=== PATIENT | female | born 1995 | race American Indian/Alaskan Native ===

== ENCOUNTER 2020-11-11 06:22 | Emergency (ER) | payer SELFPAY ==
--- OUTSIDE RECORDS SUMMARY | 2020-11-11 06:24 | XMS REPORT | Continuity of Care Document ---
:1995 Author Organization [facility] t Address [address] [place] [address] Care Team Providers Name Role Phone Unavailable Unavailable Unavailable Payers Payer Name Policy Type Policy Number Effective Date Expiration Date S ource Problems This patient has no known problems. Allergies, Adverse Reactions, Alerts Allergy Allergy Status Severity Reaction(s) Onset Inactive Treating Comm ents Source Name Type Date Date Clinician No Known DA Active U 2019-0 [facility]- [facility] s 00:00: [address] No Known DA Active U 2015-0 [facility] 3-18 [facility] s 00:00: [address] Medications This patient has no known medications. Procedures This patient has no known procedures. Results Test Description Test Time Test Comments Results Result Comments Source BASIC METABOLIC PANEL 2018-09-28 17:04:00 Test Item Value Reference Range Interpretation Comme nts SODIUM (test code = NA) 137 MMOL/L 133-145 N POTASSIUM (test code = K) 3.6 MMOL/L 3.6-5.2 N CHLORIDE (test code = CL) 101 MMOL/L 100-108 N CARBON DIOXIDE (test code = 25 MMOL/L 22-32 N CO2) GLUCOSE (test code = GLU) 70 MG/DL 65-99 N Re sults of this assay method may be falsely depressed orelevated if p atient is taking sulfasalazine. BLOOD UREA NITROGEN (test code 9 MG/DL 6-20 N = BUN) GLOMERULAR FILTRATION RATE 171 71-165 H R eporting units: (test code = GFR) mL/min/1.7 3m\S\2 (Modified MDRD Formula) CREATININE (test code = CREAT) 0.45 MG/DL 0.60-1.00 L CALCIUM (test code = CA) 9.1 MG/DL 8.7-10.5 N THYROID STIMULATING [id number] 17:04:00 Test Item Value Reference Range Interpretation Comments THYROID STIMULATING < 0.01 0.42-5.47 L Micro-In ternational HORMONE (test code = TSH) Un its/L BASIC METABOLIC [id number] 16:52:00 Test Item Value Reference Range Interpretation Comments SODIUM (test code = 137 MMOL/L 133-145 N NA) POTASSIUM (test code = 3.6 MMOL/L 3.6-5.2 N K) CHLORIDE (test code = 101 MMOL/L 100-108 N CL) CARBON DIOXIDE (test 25 MMOL/L 22-32 N code = CO2) GLUCOSE (test code = 70 MG/DL 65-99 N Results of this assay GLU) method may be f alsely depressed orele vated if patient is t aking sulfasalazine. BLOOD UREA NITROGEN 9 MG/DL 6-20 N (test code = BUN) GLOMERULAR FILTRATION 171 71-165 H Report ing units: RATE (test code = GFR) mL/mi n/1.73m\S\2 (Modified MDRD Formula) CREATININE (test code 0.45 MG/DL 0.60-1.00 L = CREAT) CALCIUM (test code = 9.1 MG/DL 8.7-10.5 N CA) THYROID STIMULATING [id number] 16:52:00 Test Item Value Reference Range Interpretation Comments THYROID STIMULATING HORMONE (test code 0.42-5.47 = TSH) CBC W/AUTO [id number] 16:44:00 Test Item Value Reference Range Interpretation Comments WHITE BLOOD CELL (test 12.70 x10 3/uL 4.80-10.80 H Res ults called to code = WBC) and read back Sukhdev MARTINEZ RN;[id number], 09/28/18, D.LAB.MCM. RED BLOOD CELL (test 4.82 x10 6/uL 4.2-5.4 N code = RBC) HEMOGLOBIN (test code = 12.8 G/DL 12.0-16.0 N HGB) HEMATOCRIT (test code = 37.2 % 37-47 N HCT) MEAN CELL VOLUME (test 77.2 FL 81-99 L code = MCV) MEAN CELL HGB (test 26.6 PG 27-31 L code = MCH) MEAN CELL HGB 34.4 G/DL 33-37 N CONCENTRATION (test code = MCHC) RED CELL DISTRIBUTION 13.8 % 11.5-14.5 N WIDTH (test code = RDW) PLATELET COUNT (test 229 x10 3/uL 150-450 N code = PLT) MEAN PLATELET VOLUME 10.0 FL 7.4-10.4 N (test code = MPV) NEUTROPHIL % (test code 89.1 % 42-86 H = NT%) LYMPHOCYTE % (test code 5.6 % 24-44 L = LY%) MONOCYTE % (test code = 5.3 % 0.0-4.0 H MO%) EOSINOPHIL % (test code 0.0 % 0.0-2.7 N = EO%) BASOPHIL % (test code = 0.0 % 0.0-0.5 N BA%) NEUTROPHIL # (test code 11.32 x10 3/uL 1.8-7.7 H = NT#) LYMPHOCYTE # (test code 0.71 x10 3/uL 1.0-4.8 L = LY#) MONOCYTE # (test code = 0.67 x10 3/uL 0.0-0.8 N MO#) EOSINOPHIL # (test code 0.00 x10 3/uL 0.0-0.5 N = EO#) BASOPHIL # (test code = 0.00 x10 3/uL 0.0-0.2 N BA#)
[2020-11-11 07:08] LABS: Basophils % 0.3 % (0-1.3); Hematocrit 38.9 % (36.0-45.0); Lymphocytes % 36.2 % (15.3-44.8); MPV 8.3 fL (7.6-11.3); RBC Red Blood Cell Count 4.43 M/uL (3.86-4.86)
[2020-11-11 07:35] LABS: ALT/SGPT 16 U/L (12-78); AST/SGOT 12 U/L (15-37); Albumin 3.9 g/dL (3.4-5.0); BUN Blood Urea Nitrogen 10 mg/dL (7-18); Bicarbonate 25 mmol/L (21-32); Bilirubin Direct < 0.1 mg/dL (0-0.2); Bilirubin Total 0.3 mg/dL (0.2-1.0); Glucose Level 88 mg/dL (74-106); Protein, Total 7.6 g/dL (6.4-8.2); Sodium Level 140 mmol/L (136-145)
[2020-11-11 07:38] LABS: Alkaline Phosphatase ND U/L (45-117)
--- NOTE | 2020-11-11 07:45 | RAD REPORT ---
EXAM DESCRIPTION: Yolanda Single View11/11/2020 7:04 am CLINICAL HISTORY: Cough COMPARISON: none FINDINGS: The lungs appear clear of acute infiltrate. The heart is normal size IMPRESSION: No acute abnormalities displayed
--- NOTE | 2020-11-11 09:13 | ER ---
Nurse's Notes [facility] Name: Sharifa Broussard Age: 25 yrs Sex: Female : 1995 Arrival Date: 11/11/2020 Time: 06:22 Bed 13 Private MD: Diagnosis: Acute upper respiratory infection, unspecified;SARS-associated coronavirus as the cause of diseases classified elsewhere;Hypothyroidism, unspecified Presentation: 11/11 06:33 Chief complaint: Patient states: family has COVID, Pt states she has had a headache x 4 dm5 days with runny nose and eyes and diarrhea. Coronavirus screen: diarrhea, headache, runny nose, Client presents with at least one sign or symptom that may indicate coronavirus-19. Standard/surgical mask placed on the client. Ebola Screen: Patient negative for fever greater than or equal to 101.5 degrees Fahrenheit, and additional compatible Ebola Virus Disease symptoms Patient denies exposure to infectious person. Patient denies travel to an Ebola-affected area in the 21 days before illness onset. No symptoms or risks identified at this time. Initial Sepsis Screen: Does the patient meet any 2 criteria? No. Patient's initial sepsis screen is negative. Does the patient have a suspected source of infection? No. Patient's initial sepsis screen is negative. Risk Assessment: Do you want to hurt yourself or someone else? Patient reports no desire to harm self or others. Onset of symptoms was November 11, 2020. 06:33 Method Of Arrival: Ambulatory dm5 06:33 Acuity: JESSIE 3 dm5 Triage Assessment: 06:36 General: Appears in no apparent distress. Behavior is calm, cooperative. Pain: Denies dm5 pain. GI: Reports diarrhea. Derm: Skin is pink, warm \T\ dry. 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 - Social history:: Smoking status: Patient denies any tobacco usage or history of. Screenin:44 Abuse screen: Denies threats or abuse. Denies injuries from another. Nutritional mg2 screening: No deficits noted. Tuberculosis screening: No symptoms or risk factors identified. Fall Risk None identified. Assessment: 06:43 General: Appears in no apparent distress. comfortable. Pain: Denies pain. Neuro: Level mg2 of Consciousness is awake, alert, obeys commands, Oriented to person, place, time, situation. Cardiovascular: Capillary refill < 3 seconds Patient's skin is warm and dry. Respiratory: Airway is patent Respiratory effort is even, unlabored, Respiratory pattern is regular, symmetrical. GI: Reports diarrhea. : No signs and/or symptoms were reported regarding the genitourinary system. EENT: No signs and/or symptoms were reported regarding the EENT system. Derm: Skin is intact, is healthy with good turgor, Skin is pink, warm \T\ dry. normal. Musculoskeletal: Circulation, motion, and sensation intact. Capillary refill < 3 seconds. 07:15 General: Appears in no apparent distress. comfortable, Behavior is calm, cooperative, jd3 appropriate for age. Pain: Denies pain. Neuro: Level of Consciousness is awake, alert, obeys commands, Oriented to person, place, time, situation. Cardiovascular: Denies chest pain, Capillary refill < 3 seconds Patient's skin is warm and dry. Respiratory: Reports cough that is non-productive, Airway is patent Respiratory effort is even, unlabored, Respiratory pattern is regular, symmetrical. GI: Abdomen is flat, non-distended, Reports diarrhea. : No signs and/or symptoms were reported regarding the genitourinary system. EENT: Reports nasal discharge. Derm: Skin is intact, Skin is dry, Skin is normal, Skin temperature is warm. Musculoskeletal: Circulation, motion, and sensation intact. Range of motion: intact in all extremities. 08:31 Reassessment: Patient appears in no apparent distress at this time. No changes from jd3 previously documented assessment. Patient and/or family updated on plan of care and expected duration. Pain level reassessed. Patient is alert, oriented x 3, equal unlabored respirations, skin warm/dry/pink. awaiting results. 09:26 Reassessment: Patient appears in no apparent distress at this time. Patient and/or jd3 family updated on plan of care and expected duration. Pain level reassessed. Patient is alert, oriented x 3, equal unlabored respirations, skin warm/dry/pink. reported understanding of discharge instructions. even and steady gait upon discharge. Vital Signs: 06:33 Weight 57.15 kg; Height 5 ft. 4 in. (162.56 cm) (R); dm5 06:49 BP 116 / 77; Pulse 78; Resp 18; Temp 98.6(TE); Pulse Ox 99% on R/A; mg2 09:27 BP 115 / 69; Pulse 75; Resp 16 S; Pulse Ox 99% on R/A; jd3 06:33 Body Mass Index 21.63 (57.15 kg, 162.56 cm) dm5 ED Course: 06:22 Patient arrived in ED. cl3 06:35 Triage completed. dm5 06:35 Kieran Lino MD is Attending Physician. mh7 06:36 Arm band placed on. dm5 06:38 Yandel Al, CHARBEL is Primary Nurse. mg2 06:49 Patient has correct armband on for positive identification. mg2 06:49 No provider procedures requiring assistance completed. mg2 06:56 Inserted saline lock: 20 gauge in right antecubital area, using aseptic technique. mg2 Blood collected. 07:04 Chest Single View XRAY In Process Unspecified. EDMS 07:20 Attending Physician role handed off by Kieran Lino MD kdr 07:20 Dio Baez MD is Attending Physician. kdr 07:43 Primary Nurse role handed off by Yandel Al RN 08:31 Yonathan Sadler RN is Primary Nurse. jd3 09:27 IV discontinued, intact, bleeding controlled, No redness/swelling at site. Pressure jd3 dressing applied. Administered Medications: No medications were administered Outcome: 09:10 Discharge ordered by . kdr 09:27 Discharged to home ambulatory, with family. jd3 09:27 Condition: stable 09:27 Discharge instructions given to patient, Instructed on discharge instructions, follow up and referral plans. Demonstrated understanding of instructions, follow-up care. 09:28 Patient left the ED. jd3 Signatures: Dispatcher [employer] EDMS Damaris Monroe, RN RN dm5 Dio Baez MD MD kdr Yonathan Sadler RN RN jd3 Elizabeth Cardozo eb Yandel Al RN RN [facility] Leticia Dalal 3 Kieran Lino MD MD 7
--- NOTE | 2020-11-11 09:13 | EDPHYS ---
Physician Documentation [facility] Name: Sharifa Broussard Age: 25 yrs Sex: Female : 1995 Arrival Date: 11/11/2020 Time: 06:22 Bed 13 Private MD: ED Physician Dio Baez HPI: 11/11 07:12 This 25 yrs old Other Female presents to ER via Ambulatory with complaints of Runny mh7 Nose, Diarrhea. 07:12 The patient or guardian reports cough, that is intermittent, described as moderate, mh7 with no sputum, flu symptoms, myalgias, runny nose, diarrhea. Onset: The symptoms/episode began/occurred 5 day(s) ago. Severity of symptoms: At their worst the symptoms were moderate, 2 day(s) ago, in the emergency department the symptoms are unchanged. Modifying factors: The symptoms are alleviated by nothing, the symptoms are aggravated by nothing. Associated signs and symptoms: Pertinent positives: diarrhea, nausea, rhinorrhea, Pertinent negatives: chest pain, ear ache, fever, vomiting. 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 - Social history:: Smoking status: Patient denies any tobacco usage or history of. ROS: 07:12 Constitutional: Negative for fever, chills, and weight loss, Eyes: Negative for injury, mh7 pain, redness, and discharge, ENT: Negative for injury, pain, and discharge, Neck: Negative for injury, pain, and swelling, Cardiovascular: Negative for chest pain, palpitations, and edema, Respiratory: Negative for shortness of breath, cough, wheezing, and pleuritic chest pain, Back: Negative for injury and pain, : Negative for injury, bleeding, discharge, and swelling, MS/Extremity: Negative for injury and deformity, Skin: Negative for injury, rash, and discoloration, Psych: Negative for depression, anxiety, suicide ideation, homicidal ideation, and hallucinations, Allergy/Immunology: Negative for hives, rash, and allergies, Endocrine: Negative for neck swelling, polydipsia, polyuria, polyphagia, and marked weight changes, Hematologic/Lymphatic: Negative for swollen nodes, abnormal bleeding, and unusual bruising. Exam: 07:12 Constitutional: This is a well developed, well nourished patient who is awake, alert, mh7 and in no acute distress. Head/Face: Normocephalic, atraumatic. Eyes: Pupils equal round and reactive to light, extra-ocular motions intact. Lids and lashes normal. Conjunctiva and sclera are non-icteric and not injected. Cornea within normal limits. Periorbital areas with no swelling, redness, or edema. ENT: Nares patent. No nasal discharge, no septal abnormalities noted. Tympanic membranes are normal and external auditory canals are clear. Oropharynx with no redness, swelling, or masses, exudates, or evidence of obstruction, uvula midline. Mucous membranes moist. 07:12 Chest/axilla: Normal chest wall appearance and motion. Nontender with no deformity. No lesions are appreciated. Cardiovascular: Regular rate and rhythm with a normal S1 and S2. No gallops, murmurs, or rubs. Normal PMI, no JVD. No pulse deficits. Respiratory: Lungs have equal breath sounds bilaterally, clear to auscultation and percussion. No rales, rhonchi or wheezes noted. No increased work of breathing, no retractions or nasal flaring. Abdomen/GI: Soft, non-tender, with normal bowel sounds. No distension or tympany. No guarding or rebound. No evidence of tenderness throughout. Back: No spinal tenderness. No costovertebral tenderness. Full range of motion. Skin: Warm, dry with normal turgor. Normal color with no rashes, no lesions, and no evidence of cellulitis. MS/ Extremity: Pulses equal, no cyanosis. Neurovascular intact. Full, normal range of motion. Neuro: Awake and alert, GCS 15, oriented to person, place, time, and situation. Cranial nerves II-XII grossly intact. Motor strength 5/5 in all extremities. Sensory grossly intact. Cerebellar exam normal. Normal gait. Psych: Awake, alert, with orientation to person, place and time. Behavior, mood, and affect are within normal limits. 07:12 Neck: Thyroid: enlargement, that is mild, Trachea: is midline with no obvious abnormalities, ROM/movement: is normal, Lymph nodes: no appreciated lymphadenopathy. Vital Signs: 06:33 Weight 57.15 kg; Height 5 ft. 4 in. (162.56 cm) (R); dm5 06:49 BP 116 / 77; Pulse 78; Resp 18; Temp 98.6(TE); Pulse Ox 99% on R/A; mg2 09:27 BP 115 / 69; Pulse 75; Resp 16 S; Pulse Ox 99% on R/A; jd3 06:33 Body Mass Index 21.63 (57.15 kg, 162.56 cm) dm5 MDM: 07:12 Transition of care: After a detail discussion of the patient's case, care is 7 transferred to Dio Baez MD. 09:10 Patient medically screened. kdr 16:31 Data reviewed: vital signs, nurses notes, lab test result(s), radiologic studies. kdr Counseling: I had a detailed discussion with the patient and/or guardian regarding: the historical points, exam findings, and any diagnostic results supporting the discharge/admit diagnosis, lab results, radiology results, the need for outpatient follow up. 11/11 06:48 Order name: CBC with Diff [facility] 11/11 06:48 Order name: Basic Metabolic Panel [facility] 11/11 06:48 Order name: LFT's [facility] 11/11 06:48 Order name: TSH; Complete Time: 08:49 [facility] 11/11 06:48 Order name: CBC with Automated Diff; Complete Time: 07:35 [facility] 11/11 06:48 Order name: Chest Single View XRAY; Complete Time: 08:49 [facility] 11/11 06:48 Order name: Basic Metabolic Panel; Complete Time: 08:49 [facility] 11/11 06:48 Order name: Liver (Hepatic) Function; Complete Time: 08:49 [facility] 11/11 07:37 Order name: T4 Free; Complete Time: 08:49 [facility] 11/11 08:21 Order name: SARS-COV-2 RT PCR; Complete Time: 08:49 EDMS Administered Medications: No medications were administered Disposition: 11/11/20 09:10 Discharged to Home. Impression: Acute upper respiratory infection, unspecified, SARS-associated coronavirus as the cause of diseases classified elsewhere, Hypothyroidism, unspecified. - Condition is Stable. - Discharge Instructions: Hypothyroidism, Upper Respiratory Infection, Adult, COVID-19. - Medication Reconciliation Form, Thank You Letter form. - Follow up: Private Physician; When: 2 - 3 days; Reason: If symptoms return, Further diagnostic work-up, Recheck today's complaints, Continuance of care, Re-evaluation by your physician. - Problem is new. - Symptoms have improved. - Notes: Consider holding your thyroid medication Metazole)for a few days. Follow-up is very important to get your medications appropriately adjusted Signatures: Dispatcher [employer] [facility] Damaris Monroe, RN RN dm5 Dio Baez MD MD kdr Yonathan Sadler RN RN jd3 Kieran Lino MD MD mh7 Corrections: (The following items were deleted from the chart) 07:19 06:48 CORONAVIRUS+ ordered. [facility] 09:28 09:10 11/11/2020 09:10 Discharged to Home. Impression: Acute upper respiratory jd3 infection, unspecified; SARS-associated coronavirus as the cause of diseases classified elsewhere; Hypothyroidism, unspecified. Condition is Stable. Forms are Medication Reconciliation Form, Thank You Letter, Antibiotic Education, Prescription Opioid Use. Follow up: Private Physician; When: 2 - 3 days; Reason: If symptoms return, Further diagnostic work-up, Recheck today's complaints, Continuance of care, Re-evaluation by your physician. Problem is new. Symptoms have improved. kdr
[2020-11-11 09:52] VITALS: TEMP 98.6; O2SAT 99
[2020-11-11 10:00] VITALS: BP 115/69
== END 2020-11-11 09:28 | disposition home or self-care (01) ==
LOC: ER 06:22
DX: U07.1 COVID-19 (principal); J06.9 Acute upper respiratory infection, unspecified; E03.9 Hypothyroidism, unspecified
CPT/HCPCS: 36415; 71045; 80048; 80076; 84439; 84443; 85025; 99283; U0003

== ENCOUNTER 2020-12-06 16:34 | Emergency (ER) | payer SELFPAY ==
--- OUTSIDE RECORDS SUMMARY | 2020-12-06 16:37 | XMS REPORT | Continuity of Care Document ---
:1995 Author Organization [facility] t Address [address] [place] [address] Care Team Providers Name Role Phone Unavailable Unavailable Unavailable Payers Payer Name Policy Type Policy Number Effective Date Expiration Date S ource Problems This patient has no known problems. Allergies, Adverse Reactions, Alerts Allergy Allergy Status Severity Reaction(s) Onset Inactive Treating Comm ents Source Name Type Date Date Clinician No Known DA Active U 2019-0 [facility] 6- [facility] s 00:00: [address] No Known DA Active U 2016-0 [facility] 3-18 [facility] s 00:00: [address] Medications This patient has no known [...] CA) 9.1 MG/DL 8.7-10.5 N THYROID STIMULATING [id number] 17:04:00 Test Item Value Reference Range Interpretation Comments THYROID STIMULATING < 0.01 0.42-5.47 L Micro-In ternational HORMONE (test code = TSH) Un its/L BASIC METABOLIC [id number] 16:52:00 Test Item Value Reference Range Interpretation [...] 9.1 MG/DL 8.7-10.5 N CA) THYROID STIMULATING [id number] 16:52:00 Test Item Value Reference Range Interpretation Comments THYROID STIMULATING HORMONE (test code 0.42-5.47 = TSH) CBC W/AUTO [id number] 16:44:00 Test Item Value Reference Range Interpretation Comments WHITE BLOOD CELL (test 12.70 x10 3/uL 4.80-10.80 H Res ults called to code = WBC) and read back Sukhdev MARTINEZ RN;[id number], 09/28/18, D.LAB.MCM. RED BLOOD CELL (test 4.82 [...]
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
[2020-12-06] MEDS ORDERED: TETANUS & DIPHTHERIA TOX,ADULT 0.5 ML VIAL ONE (17:43)
[2020-12-06] MEDS ORDERED: HYDROCODONE/APAP 10/325 TAB ONE (17:43)
[2020-12-06 17:49] VITALS: TEMP 98; O2SAT 100
[2020-12-06 17:50] VITALS: BP 91/71
== END 2020-12-06 17:39 | disposition home or self-care (01) ==
LOC: ER 16:34
DX: L55.0 Sunburn of first degree (principal); Z23 Encounter for immunization; E05.00 Thyrotoxicosis with diffuse goiter without thyrotoxic crisis or storm
CPT/HCPCS: 90471; 90714; 99283

== ENCOUNTER 2022-04-02 16:28 | Emergency (ER) | payer SELFPAY ==
--- OUTSIDE RECORDS SUMMARY | 2022-04-02 16:31 | XMS REPORT | Continuity of Care Document ---
:1995 Author Organization [facility] t Address [address] [place] [address] Care Team Providers Name Role Phone Sylvia Morales Admitting Clinician Unavailable Payers Payer Name Policy Type Policy Number Effective Date Expiration Date S ource Problems This patient has no known problems. Allergies, Adverse Reactions, Alerts Allergy Allergy Status Severity Reaction(s) Onset Inactive Treating Comm ents Source Name Type Date Date Clinician No Known DA Active U 2019-0 [facility] 6- [facility] 00:00: [address] No Known DA Active U 2015-0 [facility]ie 3-18 [facility] 00:00: [address] Medications This patient has no known medications. Procedures This patient has no known procedures. Encounters Start End Encounter Admission Attending Care Care Encounter Source Date/Time Date/Time Type Type Clinicians Facility Department ID 2020-02-14 2020-02-17 Inpatient [facility] ER [id number] 19:46:00 08:07:52 94 [facility] Results Test Description Test Time Test Comments [...] CA) 9.1 MG/DL 8.7-10.5 N THYROID STIMULATING [id number] 17:04:00 Test Item Value Reference Range Interpretation Comments THYROID STIMULATING < 0.01 0.42-5.47 L Micro-In ternational HORMONE (test code = TSH) Un its/L BASIC METABOLIC [id number] 16:52:00 Test Item Value Reference Range Interpretation [...] 9.1 MG/DL 8.7-10.5 N CA) THYROID STIMULATING [id number] 16:52:00 Test Item Value Reference Range Interpretation Comments THYROID STIMULATING HORMONE (test code 0.42-5.47 = TSH) CBC W/AUTO [id number] 16:44:00 Test Item Value Reference Range Interpretation Comments WHITE BLOOD CELL (test 12.70 x10 3/uL 4.80-10.80 H Res ults called to code = WBC) and read back Sukhdev MARTINEZ RN;[id number], 09/28/18, D.LAB.MCM. RED BLOOD CELL (test 4.82 [...]
[2022-04-02] MEDS ORDERED: PROPRANOLOL HCL 10 MG TAB PO SCH (17:00)
[2022-04-02 17:09] LABS: Urine Blood Negative (Negative); Urine Glucose Negative (Negative); Urine Protein Negative (Negative)
[2022-04-02 17:31] LABS: Urine Bacteria <20 /HPF (<20); Urine RBC <5 /HPF (None Seen)
--- NOTE | 2022-04-02 17:48 | RAD REPORT ---
EXAM DESCRIPTION: RAD - Chest Pa And Lat (2 Views) - 04/02/2022 5:31 pm CLINICAL HISTORY: CONGESTION COMPARISON: Chest Single View dated 11/11/2020 FINDINGS: Lines: None. Lungs: No evidence of edema or pneumonia. Pleural: No significant pleural effusions or pneumothorax. Cardiac: The heart size is within normal limits. Bones: No acute fractures. Other: IMPRESSION: No acute cardiopulmonary disease.
[2022-04-02] MEDS ORDERED: FAMOTIDINE 20 MG TAB ONE (17:51)
[2022-04-02] MEDS ORDERED: predniSONE 20 MG TAB ONE (17:51)
[2022-04-02 18:03] LABS: Absolute Lymphocytes (CBC) 1.5 K/uL (0.7-4.9); Hematocrit 37.9 % (36.0-45.0); Lymphocytes % 46.9 % (15.3-44.8); MCV 77.9 fL (80-100); MPV 8.3 fL (7.6-11.3); RBC Red Blood Cell Count 4.87 M/uL (3.86-4.86)
[2022-04-02 18:30] LABS: ALT/SGPT 28 U/L (12-78); AST/SGOT 17 U/L (15-37); Albumin 3.7 g/dL (3.4-5.0); Alkaline Phosphatase 153 U/L (45-117); BUN Blood Urea Nitrogen 6 mg/dL (7-18); Bicarbonate 28 mmol/L (21-32); Bilirubin Total 0.4 mg/dL (0.2-1.0); Glomerular Filtration Rate 137 ml/min (=/>90); Glucose Level 93 mg/dL (74-106); Lipase 45 U/L (73-393); Potassium 3.7 mmol/L (3.5-5.1); Protein, Total 7.5 g/dL (6.4-8.2); Sodium Level 142 mmol/L (136-145)
--- NOTE | 2022-04-02 18:37 | EDPHYS ---
Physician Documentation [facility] Name: Sharifa Broussard Age: 26 yrs Sex: Female : 1995 Arrival Date: 04/02/2022 Time: 16:29 Bed 7 Private MD: ED Physician Roosevelt Hart HPI: 04/02 16:53 This 26 yrs old Female presents to ER via Ambulatory with complaints of Sore Throat, snw Headache, Neck Pain, <24hrs Old. 16:53 The patient presents with sore throat. The patient describes throat pain as raw. The snw patient describes throat pain as scratchy. Onset: The symptoms/episode began/occurred gradually. Severity of symptoms: At their worst the symptoms were moderate. Modifying factors: the symptoms are aggravated by lack of Methimazole x a couple of months. Associated signs and symptoms: Pertinent positives: diarrhea, flu-like symptoms, Sore throat. The patient has experienced similar episodes in the past. The patient has not recently seen a physician. Historical: - Allergies: 16:37 No Known Allergies; kr3 - PMHx: 16:37 grave's disease; kr3 - Immunization history:: Client reports having NOT received the Covid vaccine. - Social history:: Smoking status: Patient reports the use of cigarette tobacco products, smokes one-half pack cigarettes per day. ROS: 16:53 Eyes: Negative for injury, pain, redness, and discharge. snw 16:53 Cardiovascular: Negative for chest pain, palpitations, and edema, Respiratory: Negative for shortness of breath, cough, wheezing, and pleuritic chest pain. 16:53 Back: Negative for injury and pain, : Negative for injury, bleeding, discharge, and swelling, MS/Extremity: Negative for injury and deformity, Skin: Negative for injury, rash, and discoloration, Neuro: Negative for headache, weakness, numbness, tingling, and seizure, Psych: Negative for depression, anxiety, suicide ideation, homicidal ideation, and hallucinations. 16:53 Constitutional: Positive for body aches, fatigue, malaise, poor PO intake. 16:53 ENT: Positive for sore throat. 16:53 Neck: Positive for swelling, tenderness. 16:53 Abdomen/GI: Positive for nausea, diarrhea. Exam: 16:53 Head/Face: Normocephalic, atraumatic. snw 16:53 Eyes: Pupils equal round and reactive to light, extra-ocular motions intact. Lids and lashes normal. Conjunctiva and sclera are non-icteric and not injected. Cornea within normal limits. Periorbital areas with no swelling, redness, or edema. 16:53 Chest/axilla: Normal chest wall appearance and motion. Nontender with no deformity. No lesions are appreciated. 16:53 Skin: Warm, dry with normal turgor. Normal color with no rashes, no lesions, and no evidence of cellulitis. MS/ Extremity: Pulses equal, no cyanosis. Neurovascular intact. Full, normal range of motion. Neuro: Awake and alert, GCS 15, oriented to person, place, time, and situation. Cranial nerves II-XII grossly intact. Motor strength 5/5 in all extremities. Sensory grossly intact. Cerebellar exam normal. Normal gait. Psych: Awake, alert, with orientation to person, place and time. Behavior, mood, and affect are within normal limits. Tearful 16:53 Constitutional: The patient appears alert, awake, anxious. 16:53 ENT: Posterior pharynx: erythema, that is mild. 16:53 Neck: External neck: mass, that is moderate-sized, of the thyroid cartilage, right aspect of thyroid, left aspect of thyroid, right sternocleidomastoid and left sternocleidomastoid, swelling. 16:53 Cardiovascular: Rate: tachycardic, Rhythm: regular, Heart sounds: normal. 16:53 Cardiovascular: Edema: pedal edema, that is moderate. 16:53 Respiratory: the patient does not display signs of respiratory distress. 16:53 Abdomen/GI: Exam negative for acute changes. 16:53 Back: Exam negative for 16:53 Musculoskeletal/extremity: Exam is negative for ROM: no acute changes. Vital Signs: 16:33 BP 147 / 80; Pulse 116; Resp 16; Temp 98.0; Pulse Ox 99% on R/A; Weight 54.61 kg; kr3 Height 5 ft. 2 in. (157.48 cm); Pain 9/10; 18:45 BP 103 / 59; Pulse 85; Resp 18; Temp 97.8; Pulse Ox 100% on R/A; ph 16:33 Body Mass Index 22.02 (54.61 kg, 157.48 cm) kr3 MDM: 16:32 Patient medically screened. rn 18:49 Data reviewed: vital signs, nurses notes. Data interpreted: Pulse oximetry: on room air snw is 100 %. Interpretation: normal. Counseling: I had a detailed discussion with the patient and/or guardian regarding: the historical points, exam findings, and any diagnostic results supporting the discharge/admit diagnosis, lab results, radiology results, the need for outpatient follow up, to return to the emergency department if symptoms worsen or persist or if there are any questions or concerns that arise at home. Response to treatment: the patient's symptoms have markedly improved after treatment. 04/02 16:33 Order name: Strep; Complete Time: 17:14 snw 04/02 16:33 Order name: SARS-COV-2 RT PCR (Document "Date of Onset" if Symptomatic); Complete Time: snw 18:22 04/02 16:33 Order name: Flu; Complete Time: 17:35 snw 04/02 16:33 Order name: Urine Microscopic Only; Complete Time: 17:35 snw 04/02 16:53 Order name: CBC with Diff; Complete Time: 18:11 snw 04/02 16:53 Order name: CMP; Complete Time: 19:12 snw 04/02 16:47 Order name: Chest Pa And Lat (2 Views) XRAY; Complete Time: 17:56 snw 04/02 16:53 Order name: Lipase; Complete Time: 19:12 snw 04/02 16:53 Order name: TSH; Complete Time: 19:12 snw 04/02 17:09 Order name: Urine --Ancillary (enter results); Complete Time: 17:35 bd 04/02 17:10 Order name: Urine Dipstick-Ancillary; Complete Time: 17:14 EDMS 04/02 17:11 Order name: Throat Culture EDMS 04/02 16:33 Order name: Urine Dipstick-Ancillary (obtain specimen); Complete Time: 17:09 snw 04/02 16:33 Order name: Urine Test (obtain specimen); Complete Time: 17:09 snw 04/02 16:53 Order name: IV Saline Lock; Complete Time: 18:23 snw 04/02 16:53 Order name: Labs collected and sent; Complete Time: 18:23 snw 04/02 18:35 Order name: Recheck VS; Complete Time: 19:20 snw Administered Medications: 17:44 Drug: INDeral (propranolol) 20 mg Route: PO; kr3 19:21 Follow up: Response: No adverse reaction ph 17:44 Drug: predniSONE 40 mg Route: PO; kr3 19:22 Follow up: Response: No adverse reaction ph 17:44 Drug: Pepcid (famotidine) 20 mg Route: PO; kr3 19:22 Follow up: Response: No adverse reaction ph 19:20 Not Given (Other Intervention Used): NS 0.9% 500 ml IV at bolus once ph Disposition Summary: 04/02/22 18:36 Discharge Ordered Location: Home snw Condition: Stable snw Diagnosis - Chronic thyroiditis with transient thyrotoxicosis snw - Patient's unintentional underdosing of medication regimen for other reason snw Followup: snw - With: Private Physician - When: 1 - 2 days - Reason: Recheck today's complaints, Continuance of care, Re-evaluation by your physician Followup: snw - With: Emergency Department - When: As needed - Reason: Worsening of condition Discharge Instructions: - Discharge Summary Sheet snw - Hyperthyroidism snw - Aspirin and Your Heart snw Forms: - Medication Reconciliation Form snw - Thank You Letter snw - Antibiotic Education snw - Prescription Opioid Use snw Prescriptions: - methimazole 10 mg Oral tablet - take 1 tablet by ORAL route once daily; 90 tablet; Refills: 0, Product snw Selection Permitted Addendum: 04/03/2022 21:46 Co-signature as Attending Physician, Roosevelt Hart MD. r n Signatures: Dispatcher [employer] Winter Navarrete, JACKELINE-C CORRECTIONAL COUNSELOR/CASE MANAGER-Csnw Roosevelt Hart MD MD rn Reid, Kelley, RN RN kr3 Solange Wesley RN ph
--- NOTE | 2022-04-02 18:37 | ER ---
Nurse's Notes [facility] Name: Sharifa Broussard Age: 26 yrs Sex: Female : 1995 Arrival Date: 04/02/2022 Time: 16:29 Bed 7 Private MD: Diagnosis: Chronic thyroiditis with transient thyrotoxicosis;Patient's unintentional underdosing of medication regimen for other reason Presentation: 04/02 16:33 Chief complaint: Patient states: graves disease, ran out of meds few months ago, neck kr3 pain that radiates to head, headache will not go away. Coronavirus screen: Vaccine status: Patient reports being unvaccinated. Client denies travel out of the [place] in the last 14 days. Ebola Screen: Patient denies travel to an Ebola-affected area in the 21 days before illness onset. Initial Sepsis Screen: Does the patient meet any 2 criteria? No. Patient's initial sepsis screen is negative. Does the patient have a suspected source of infection? No. Patient's initial sepsis screen is negative. Risk Assessment: Do you want to hurt yourself or someone else? Patient reports no desire to harm self or others. Onset of symptoms was March 29, 2022. 16:33 Method Of Arrival: Ambulatory kr3 16:33 Acuity: JESSIE 3 kr3 Triage Assessment: 16:37 General: Appears distressed, uncomfortable, slender, Behavior is calm, cooperative, kr3 appropriate for age. Pain: Complains of pain in neck and head Pain currently is 9 out of 10 on a pain scale. Quality of pain is described as shooting. EENT:. Historical: - Allergies: 16:37 No Known Allergies; kr3 - PMHx: 16:37 grave's disease; kr3 - Immunization history:: Client reports having NOT received the Covid vaccine. - Social history:: Smoking status: Patient reports the use of cigarette tobacco products, smokes one-half pack cigarettes per day. Screenin:46 Abuse screen: Denies threats or abuse. Denies injuries from another. Nutritional ph screening: No deficits noted. Tuberculosis screening: No symptoms or risk factors identified. Fall Risk None identified. Assessment: 17:10 Reassessment: No changes from previously documented assessment. Patient and/or family ll1 updated on plan of care and expected duration. Pain level reassessed. 17:45 Reassessment: No changes from previously documented assessment. Patient and/or family ll1 updated on plan of care and expected duration. Pain level reassessed. 18:24 Reassessment: No changes from previously documented assessment. Patient and/or family ll1 updated on plan of care and expected duration. Pain level reassessed. 18:44 General: Appears in no apparent distress. comfortable, slender, well groomed, Behavior ph is calm, cooperative, appropriate for age. Pain: Complains of pain in "pressure behind eyes.". Neuro: Level of Consciousness is awake, alert, obeys commands, Oriented to person, place, time, situation, Reports headache. Cardiovascular: Capillary refill < 3 seconds in bilateral fingers Patient's skin is warm and dry. Respiratory: Airway is patent Respiratory effort is even, unlabored. EENT: Throat is reddened Reports pain when swallowing. Derm: Skin is intact, Skin is pink, warm \\T\\ dry. Vital Signs: 16:33 BP 147 / 80; Pulse 116; Resp 16; Temp 98.0; Pulse Ox 99% on R/A; Weight 54.61 kg; kr3 Height 5 ft. 2 in. (157.48 cm); Pain 9/10; 18:45 BP 103 / 59; Pulse 85; Resp 18; Temp 97.8; Pulse Ox 100% on R/A; ph 16:33 Body Mass Index 22.02 (54.61 kg, 157.48 cm) kr3 ED Course: 16:29 Patient arrived in ED. am2 16:31 Roosevelt Hart MD is Attending Physician. rn 16:31 Winter Doyle FNP-C is PHCP. snw 16:33 Winter Doyle FNP-C is PHCP. snw 16:36 Triage completed. kr3 16:39 Arm band placed on. kr3 17:09 Urine Microscopic Only Sent. jl7 17:09 SARS-COV-2 RT PCR (Document "Date of Onset" if Symptomatic) Sent. jl7 17:10 Inserted saline lock: 22 gauge in right antecubital area, using aseptic technique. kr3 Blood collected. 17:32 Chest Pa And Lat (2 Views) XRAY In Process Unspecified. EDMS 18:23 Solange Wesley, RN is Primary Nurse. ph 18:23 Patient placed in an exam room, on a stretcher. ll1 18:46 Patient has correct armband on for positive identification. Bed in low position. Call ph light in reach. Side rails up X 1. Pulse ox on. NIBP on. 19:21 No provider procedures requiring assistance completed. IV discontinued, intact, ph bleeding controlled, No redness/swelling at site. Pressure dressing applied. Administered Medications: 17:44 Drug: INDeral (propranolol) 20 mg Route: PO; kr3 19:21 Follow up: Response: No adverse reaction ph 17:44 Drug: predniSONE 40 mg Route: PO; kr3 19:22 Follow up: Response: No adverse reaction ph 17:44 Drug: Pepcid (famotidine) 20 mg Route: PO; kr3 19:22 Follow up: Response: No adverse reaction ph 19:20 Not Given (Other Intervention Used): NS 0.9% 500 ml IV at bolus once ph Medication: 18:46 VIS not applicable for this client. ph Outcome: 18:36 Discharge ordered by . snw 19:21 Discharged to home ambulatory. ph 19:21 Condition: good 19:21 Discharge instructions given to patient, Instructed on discharge instructions, follow up and referral plans. medication usage, Demonstrated understanding of instructions, follow-up care, medications, Prescriptions given X 1. 19:22 Patient left the ED. ph Signatures: Dispatcher [employer] EDMS Winter Doyle, CAN PATCHER-C CAN PATCHER-Csnw Roosevelt Hart MD MD rn Hall, Patricia, RN RN ph Jovani Miranda RN RN jl7 Mary Bear am2 Caleb Dalal RN RN ll1 Blanca Quick RN RN kr3 Corrections: (The following items were deleted from the chart) 16:40 16:33 BP 147 / 80; Pulse 116bpm; Resp 16bpm; Pulse Ox 99% RA; Temp 98.0F; Height 5 ft. kr3 2 in.; Pain 9/10; kr3 16:58 16:33 Acuity: JESSIE 2 kr3 kr3 17:59 17:10 Missed attempt(s): 22 gauge in left forearm. Bleeding controlled, band aid kr3 applied, catheter tip intact. kr3
[2022-04-02 19:08] LABS: Thyroid Stimulating Hormone < 0.005 uIU/mL (0.360-3.740)
[2022-04-02 22:41] VITALS: BP 103/59; TEMP 97.8; O2SAT 100
== END 2022-04-02 19:22 | disposition home or self-care (01) ==
LOC: ER 16:28
DX: E06.2 Chronic thyroiditis with transient thyrotoxicosis (principal); Z91.138 Patient's unintentional underdosing of medication regimen for other reason; F17.210 Nicotine dependence, cigarettes, uncomplicated; Z20.822 Contact with and (suspected) exposure to COVID-19
CPT/HCPCS: 36415; 71046; 80053; 81003; 81015; 81025; 83690; 84443; 85025; 87070; 87081; 87804; 99284; J7512; U0003